=== PATIENT | male | born 1950 | race Caucasian/White ===

== ENCOUNTER 2016-09-22 15:32 | Observation (INO) | payer BC, OTHER ==
[~2016-09-22] VITALS: Ht 172.7 cm; Wt 74.1 kg
--- NOTE | 2016-09-22 16:53 | DIAGNOSTIC IMAGING REPORT ---
PROCEDURE: XR CHEST 1 VIEW INDICATION: CHEST PAIN TECHNIQUE: Portable AP view 04:14 p.m. COMPARISON: Chest 12/26/2009 FINDINGS: Lungs are clear. Mild cardiomegaly. Thorax is normal. IMPRESSION: 1. Mild cardiomegaly. Lungs clear.
--- NOTE | 2016-09-22 18:42 | ED CLINICAL REPORT ---
Clinical Report - Physicians/Mid Levels [facility] [address] [place] [address] 09/22/2016 15:33 Patient: ELA MEEKS Time Seen: 1609; initial patient contact, initial documentation, patient care assumed. Arrived- By private vehicle. Historian- patient and family. HISTORY OF PRESENT ILLNESS Chief Complaint: CHEST PAIN and DISCOMFORT. It is described as pressure and it is described as located in the central chest and left chest area. No radiation. This started yesterday and is still present. It was abrupt in onset and has been constant. Onset during light activity. At its maximum, severity described as moderate. When seen in the E.D., severity described as mild. Modifying factors. Not worsened by anything. Not relieved by anything. No nausea, vomiting, difficulty breathing or diaphoresis. (was burning wood yesterday, went to get another log, started having some chest discomfort and pressure, nd got lightheaded, passed out, no injury for passing out and since then still has the chest pressure and intermittent episodes of lightheaded, feels worse when lying supine, makes him more lightheaded). No additional chest pain. Similar symptoms previously: None. Recent medical care: Not recently seen/assessed. REVIEW OF SYSTEMS No fever or cough. He experienced syncope. All systems otherwise negative, except as recorded above. PAST HISTORY See nurses notes. PROBLEMS: Bronchitis. Back Pain. --15:42 Sherie Moreira RSheeba. ADDITIONAL SURGERIES: Back Surgery. Knee Surgery. Shoulder Surgery. --15:42 Sherie Moreira RSheeba. SOCIAL HISTORY Never smoker. No alcohol use or drug use. No recent travel. Is a local resident. FAMILY HISTORY Negative. ADDITIONAL NOTES The nursing notes have been reviewed with agreement regarding the chief complaint, HPI, ROS, PMH and patient medications and allergies. PHYSICAL EXAM Vital Signs: 09/22/2016 15:37 BP: 151/95. HR: 89. RR: 18. O2 saturation: 98%. Temp: 98.3 F. Pain level now: 3/10. Hypertensive. Heart rate normal. Respiratory rate normal. Temperature normal. Oxygen saturation normal. Appearance: Alert. Oriented X3. No acute distress. Eyes: Pupils equal, round and reactive to light. Eyes normal inspection. ENT: Ears normal. Nose normal. Pharynx normal. Neck: Normal inspection. Neck supple. CVS: Heart rate / rhythm abnormal. Abnormal rhythm, which is regularly irregular. Heart sounds normal. Respiratory: No respiratory distress. Breath sounds normal. Chest nontender. Back: Normal external inspection. Skin: Skin warm and dry. Normal skin color. No rash. Normal skin turgor. Extremities: Extremities exhibit normal ROM. No lower extremity edema. Neuro: Oriented X 3. No motor deficit. No sensory deficit. LABS, X-RAYS, AND EKG EKG: EKG time: (1540). No acute process. No acute ischemia. Abnormal EKG. Rate: 82. Atrial fibrillation (narrow-complex) (ventricular rate 82). Normal EKG. The study has been interpreted contemporaneously by me. The EKG appears to be a good tracing. EKG #2: EKG time: (1624). No acute process. No acute ischemia. Atrial fibrillation (narrow-complex) (ventricular rate 78). The study has been interpreted contemporaneously by me. The EKG appears to be a good tracing. Interpretation time: 1624. Chest X-ray: Normal Chest X-Ray. (IMPRESSION: 1. Mild cardiomegaly. Lungs clear. Electronically Final signed by:Stanley Gee MD 09/22/2016 4:53:45 PM). The X-rays were interpreted by the radiologist and contemporaneously by me. Interpretation time: 17:29. CT Head: No acute disease. The study was interpreted by the radiologist and discussed with the radiologist. Interpretation time: 19:46. Laboratory Tests: CBC w Diff: (FERNY: 09/22/2016 16:45) ( MsgRcvd 09/22/2016 17:12) Final results Test Result Flag Units (Reference) WHITE BLOOD COUNT 8.4 K/uL (4.5-11.5) RED BLOOD COUNT 5.19 M/uL (4.50-5.90) HEMOGLOBIN 15.5 gm/dL (13.5-17.5) HEMATOCRIT 46.1 % (41.0-53.0) MEAN CELL VOLUME 89 fL (80-100) MEAN CORPUSCULAR HGB 30 pg (26-34) MEAN CORPUSCULAR HGB CONC 34 g/dL (31-37) RED CELL DISTRIBUTION WIDTH 13.5 % (11.6-14.8) PLATELET COUNT 194 K/uL (150-400) NEUTROPHIL % 66.1 % (50-75) LYMPH % 24.8 L % (25-40) MONO % 5.9 % (3-14) EOSINOPHIL % 1.8 % (0-4) BASOPHIL % 1.4 % (0-2) [id number]: (FERNY: 09/22/2016 16:45) ( IlgRcvd 09/22/2016 17:19) Final results Test Result Flag Units (Reference) D-DIMER QUANTITATIVE < 0.27 L ug/mLFEU (0.27-0.52) The primary value of this quantitative assay relates toits negative predictive value (i.e. exclusion) of pulmonaryembolism/deep vein thrombosis/DIC.Elevated levels of d-dimer may also occur with:, age, cancer, inflammation, liver disease,post-op, infection, hematoma, coronary disease, peripheralarteriopathy, bleeding disorders and thrombolytic treatment.Results should be correlated with other clinical andradiological data.Testing Methodology: Latex Immunoassay CMP: (FERNY: 09/22/2016 16:45) ( IlgRcvd 09/22/2016 17:26) Final results Test Result Flag Units (Reference) GLUCOSE 105 mg/dL (70-110) BUN 17 mg/dL (7-18) CREATININE 0.9 mg/dL (0.6-1.3) Estimated GFR >60 mL/min Estimated GFR- >60 mL/min Note: Persistent reduction over 3 months in eGFR<60 mL/min/1.73 m2 defines CKD. Patients with eGFR values>=60 mL/min/1.73 m2 may also have CKD if evidence ofpersistent proteinuria. Additional information may be foundat [email or web address]. SODIUM 139 mmol/L (136-145) POTASSIUM 3.9 mmol/L (3.5-5.1) CHLORIDE 103 mmol/L (98-107) CARBON DIOXIDE 26 mmol/L (21-32) CALCIUM 9.1 mg/dL (8.5-10.1) TOTAL PROTEIN 7.7 g/dL (6.4-8.2) ALBUMIN 4.0 g/dL (3.3-5.0) BILIRUBIN, TOTAL 0.4 mg/dL (0.0-1.0) ALKALINE PHOSPHATASE 55 U/L (46-116) AST (SGOT) 18 U/L (15-37) ALT (SGPT) 15 U/L (12-78) CPK 107 U/L (24-260) TROPONIN I 0.06 ng/mL (0.00-1.5) TROPONIN REFERENCE RANGE:<0.1 NEGATIVE0.1-1.5 INDETERMINANT>1.5 POSITIVE . PROGRESS AND PROCEDURES Peripheral IV Placement: Performed by me. Indication: physician procedure. IV placed in the right forearm with an 18g angiocath with aseptic technique and good blood return; one attempt. Saline lock flushed with 5 mL saline. Course of Care: 1854. Nurse reporting pt could not do orthostatic vs, had positive tilt from laying to sitting and nearly passed out 1904. Speaking to Dr Barrientos again and updating her with pt status, and telling I am not comfortable dc'ing this pt home and that Dr Garcia agreed to see pt first thing in am if he was admitted, agreed to admit while on phone with Dr Barrientos, Dr Damon reports pt had another syncope episode while sitting in bed that last for a few min/sec Son reporting he helped his dad stand to urinate and his heart rate shot up to 128 and pt was dizzy and lightheaded and when he sat back down in bed is when syncope episode happened 1907. Spoke to Dr Garcia again, aware that pt was now staying and he agreed to see pt first thing in am 1914. Back at bedside, family wanting pt to go to [facility], where their drs are at, explained pt already had admit here, but I could check into and see if there was cardiology willing to accept him Prov full, no transfer 1920. back at bedside, pt in ct, son aware that prov was full, encouraged them to let pt stay here, expressed concerns that attempting to transfer somewhere else, would delay pt's care and put him at risk if he happened to throw an emboli in route, and that he was stable now, son agreed with current plan of care. 09/22/2016 17:46 BP: 144/98. HR: 74. RR: 18. O2 saturation: 99%. Vital Signs: have been reviewed as abnormal and appear to be correct. Hypertensive. Heart rate normal. Respiratory rate normal. Temperature normal. Oxygen saturation normal. Discussed case with on-call health care provider, (call returned [phone] Dr Barrientos, pt's case reviewed with her, nothing else would be done with pt was admitted over night, ok to [facility]). Reviewed test results. Agreed upon treatment plan and need for patient follow-up. Consult obtained from cardiology. call returned [phone] Dr Garcia - will see pt first thing Tuesday am. Case discussed. Phone consult only. Will see patient in the office in 5 days. Agree with treatment plan. Fire Investigation Manager's note not reviewed. Patient disposition not per investment consultant. Patient and family counseled in person regarding the patient's stable condition, test results, diagnosis and need for admission. 18:35. Differential Diagnosis: I considered muscle strain, costochondritis, pleurisy, rib fracture, myocardial infarction, intermediate coronary syndrome, unstable angina, angina, aortic dissection, mitral valve prolapse, pericarditis, pulmonary embolism, pneumonia, lung cancer, gastroesophageal reflux disease, esophagitis and esophageal spasm as a possible cause of chest pain in this patient. This is a partial list of diagnoses considered. Above considerations are based on history, physical exam, reassessment, laboratory data, X-Ray data and EKG. Differential diagnosis was discussed with patient. Disposition: Admitted to Acute Care. 19:11. Condition: good and stable. CLINICAL IMPRESSION Syncope of unknown cause. Atypical chest pain. New onset atrial fibrillation. INSTRUCTIONS Warnings: GENERAL WARNINGS: Return or contact your physician immediately if your condition worsens or changes unexpectedly, if not improving as expected, or if other problems arise. OTC Medications: Aspirin 325 mg (available over the counter): take 1 orally every 24 hours. Dispense twenty (20). No refills. Follow-up: Follow up with a specialist. (Electronically signed by Kera Jenkins A.R.N.P. 09/22/2016 22:16)
--- NOTE | 2016-09-22 18:42 | ED NURSING NOTES ---
Clinical Report - Nurses [facility] [address] [place] [address] 09/22/2016 15:33 Patient: ELA MEEKS TRIAGE Acuity: LEVEL 2. Chief Complaint: CHEST PAIN. Alert. No acute distress. SEPSIS SCREEN: Sepsis Screen. Negative (no infection suspected/documented). --15:45 Sherie Moreira R.N. 15:37 09/22/16. BP: 151/95. HR: 89. RR: 18. O2 saturation: 98% on room air. Temp: 98.3 F (oral). Pain level now: 08/20. --15:45 Sherie Moreira R.N. Weight: 77.5 kg stated. Height/Length: 70 inches Per Patient. BMI: 24.5. --15:44 Sherie Moreira R.N. Medications Percocet Oral. --15:40 Sherie Moreira R.N. TraZODone HCl Oral, at bedtime. --15:40 Sherie Moreira R.N. Vitamin D Oral. --15:41 Sherie Moreira R.N. Fish Oil Oral. --15:41 Sherie Moreira R.N. Medication/allergy information source: the patient. --15:45 Sherie Moreira R.N. Allergies No Known Drug Allergy. --15:41 Sherie Moreira R.N. History Arrived by private vehicle. Historian: patient. Unaccompanied. This started yesterday. Describes the quality as dull. Relates location as in the central chest area. ( Pt reports he was working in his yard yesterday and became dizzy and had a brief LOC. He states today he has a dull ache in his chest.). He has had dizziness. No difficulty breathing or sweating episodes. 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 PAST MEDICAL HX: Immunizations: up-to-date. SOCIAL HX: Smoker- current status unknown. No alcohol use or drug use. FALL RISK ASSESSMENT: Fall risk assessment completed. No fall risk identified. NUTRITIONAL RISK ASSESSMENT: The nutritional risk assessment revealed no deficiencies. FUNCTIONAL ASSESSMENT: Functional assessment: no impairments noted. LEARNING NEEDS ASSESSMENT: The learning needs assessment revealed no barriers. SKIN INTEGRITY ASSESSMENT: Skin integrity risk assessment completed. No skin integrity risk identified. --15:45 Sherie Moreira R.N. PROBLEMS: Bronchitis. Back Pain. --15:42 Sherie Moreira R.N. ADDITIONAL SURGERIES: Back Surgery. Knee Surgery. Shoulder Surgery. --15:42 Sherie Moreira R.N. Assessment GENERAL / NEURO / PSYCH: Alert. Oriented X 4. Appears in no acute distress. [place] Coma Scale: 15- eyes open spontaneously (4); best verbal response- oriented x 4 (5); best motor response- obeys commands (6). Patient appears calm and cooperative. RESPIRATORY: Respirations not labored. CVS: Cardiac rhythm: atrial fibrillation. Capillary refill less than 2 seconds. GI / : Abdomen soft and nontender. SKIN: Mucous membranes are pink. Skin is warm and dry. --15:45 Sherie Moreira R.N. Interventions ID band on patient. To treatment room. --15:45 Sherie Moreira R.N. PHYSICAL ASSESSMENT 15:45 09/22/16. To room via stretcher. GENERAL / NEURO / PSYCH: Alert. Oriented X 4. Appears in no acute distress. HEENT: Mucous membranes are pink. RESPIRATORY: Respirations not labored. CVS: Cardiac rhythm: atrial fibrillation. Pulses within normal limits. Capillary refill less than 2 seconds. GI / : Abdomen soft and nontender. SKIN: Skin is warm and dry. Normal skin turgor. --15:45 Sherie Moreira R.N. NURSING PROGRESS NOTES EKG time: (1540). EKG was performed by a tech and shown to the ED physician. --15:39 Sherie Moreira R.N. 15:46 09/22/16. monitoring analyst and pulse oximeter placed on patient; monitor alarms on. Patient gowned. Two patient identifiers checked. Call light placed in reach. Side rails up x 2. Bed placed in lowest position. Brakes of bed on. Patient ready for evaluation- chart flagged and ED physician notified. --15:46 Sherie Moreira R.N. 15:49 09/22/2016 Aspirin PO 325 mg given. Allergies verified and confirmed 5 rights. --15:49 Sherie Moreira R.N. EKG time: (3734). EKG was ordered, performed by a tech and shown to the ED physician. --16:27 Shazia Crista, ER Tech1 16:33 09/22/2016 Site #2 started via IV in the right forearm with an 18g angiocath; one attempt. Saline lock flushed with 10 mL saline (placed by Kera KNOX). --16:48 Emily Wagoner R.N. 16:42 09/22/2016 Site #1 started via IV in the right with an 20g angiocath; one attempt. Blood drawn: rainbow set. Labeled in the presence of the patient and sent to the lab. Saline lock flushed with 10 mL saline. --16:47 Emily Wagoner R.N. ( pt on monitor in afib 70's to low 80's, family at bedside, iv placed for primary RN,). --16:49 Emily Wagoner R.N. 17:35 09/22/16. BP: 144/100. HR: 78. RR: 18. O2 saturation: 99% on nasal cannula at 2 liters/minute. --17:35 Sherie Moreira R.N. 17:46 09/22/16. BP: 144/98. HR: 74. RR: 18. O2 saturation: 99% on nasal cannula at 2 liters/minute. --17:46 Sherie Moreira R.N. 17:47 09/22/16. The patient reports no complaints and he is calm and resting quietly. RESPIRATORY: No respiratory distress. CVS: Cardiac rhythm: atrial fibrillation. SKIN: Skin is warm and dry. Skin color within normal limits. Family at bedside. --17:47 Sherie Moreira R.N. 18:39 09/22/16. BP: 141/93. HR: 74. RR: 18. O2 saturation: 99% on nasal cannula at 2 liters/minute. --18:39 Sherie Moreira R.N. 19:11 09/22/16. BP: 152/98. HR: 75. RR: 20. O2 saturation: 99% on nasal cannula at 2 liters/minute. --19:13 Sherie Moreira R.N. late entry - 19:05. ( Orthostatic VS performed. Pt became very dizzy upon standing and could not stand long enough to obtain BP.). --19:14 Sherie Moreira R.N. 19:05 09/22/16. BP: 146/99 (regular adult cuff) taken on the left arm, while lying. HR: 73. RR: 20. O2 saturation: 97% on nasal cannula at 2 liters/minute. --19:16 Sherie Moreira R.N. 19:05 09/22/16. BP: 154/103. HR: 89. RR: 22. O2 saturation: 98% on nasal cannula. Additional comments: pt reports he dizziness upon sitting. --19:17 Sherie Moreira R.N. 19:22 09/22/16. Patient transported to [facility] by stretcher with [facility] [facility]. --19:22 Sherie Moreira R.N. 19:48 09/22/16. ( Attempted to call report. RN busy..). --19:48 Sherie Moreira R.N. 19:57 09/22/16. BP: 151/99. HR: 80. RR: 18. O2 saturation: 99% on nasal cannula at 2 liters/minute. --19:58 Sherie Moreira R.N. DISPOSITION / DISCHARGE 20:16 09/22/2016 Site #[address] upon admission; patent, no pain and no signs of infection or infiltration. Flushed with 10 mL saline; flushes easily. --20:16 Sherie Moreira R.N. 20:17 09/22/2016 Site #[address] upon admission; patent, no pain and no signs of infection or infiltration. Flushed with 10 mL saline; flushes easily. --20:17 Sherie Moreira R.N. Condition at departure: improved and stable. Admitted to Acute Care (211). Transported via stretcher by tech. Report was given to a nurse via a phone call. Report included patient's care, treatment, medications, reviewed medication reconcilliation, and condition (including any recent changes or anticipated changes). All questions were answered. Report was acknowledged and care was transferred. (JOSE Jones). --20:17 Sherie Moreira R.N. 20:12 09/22/16. BP: 149/89. HR: 75. RR: 18. O2 saturation: 99% on nasal cannula at 2 liters/minute. Temp: 98 F (oral). --20:17 Sherie Moreira R.N. Patient's personal items include: shirt, pants, coat, socks, shoes, hat, glasses, upper denture and lower denture and cell phone; items were placed in belongings bag, given to the patient and transported with the patient. He did not have a hearing aid or wallet. --20:24 Sherie Moreira R.N. Departure time: 20:Sep 22 2016. --20:26 Sherie Moreira R.N. Locked/Released at 09/22/2016 20:36 by Sherie Moreira R.N.
--- NOTE | 2016-09-22 18:42 | ED NURSING NOTES ---
Clinical Report - Nurses [facility] [address] [place] [place] [address] 09/22/2016 15:33 Patient: ELA MEEKS TRIAGE Acuity: LEVEL 2. Chief Complaint: CHEST PAIN. Alert. No acute distress. SEPSIS SCREEN: Sepsis Screen. Negative (no infection suspected/documented). --15:45 Sherie Moreira R.N. 15:37 09/22/16. BP: 151/95. HR: 89. RR: 18. O2 saturation: 98% on room air. Temp: 98.3 F (oral). Pain level now: 08/20. --15:45 Sherie Moreira R.N. Weight: 77.5 kg stated. Height/Length: 70 inches Per Patient. BMI: 24.5. --15:44 Sherie Moreira R.N. Medications Percocet Oral. --15:40 Sherie Moreira R.N. TraZODone HCl Oral, at bedtime. --15:40 Sherie Moreira R.N. Vitamin D Oral. --15:41 Sherie Moreira R.N. Fish Oil Oral. --15:41 Sherie Moreira R.N. Medication/allergy information source: the patient. --15:45 Sherie Moreira R.N. Allergies No Known Drug Allergy. --15:41 Sherie Moreira R.N. History Arrived by private vehicle. Historian: patient. Unaccompanied. This started yesterday. Describes the quality as dull. Relates location as in the central chest area. ( Pt reports he was working in his yard yesterday and became dizzy and had a brief LOC. He states today he has a dull ache in his chest.). He has had dizziness. No difficulty breathing or sweating episodes. 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 PAST MEDICAL HX: Immunizations: up-to-date. SOCIAL HX: Smoker- current status unknown. No alcohol use or drug use. FALL RISK ASSESSMENT: Fall risk assessment completed. No fall risk identified. NUTRITIONAL RISK ASSESSMENT: The nutritional risk assessment revealed no deficiencies. FUNCTIONAL ASSESSMENT: Functional assessment: no impairments noted. LEARNING NEEDS ASSESSMENT: The learning needs assessment revealed no barriers. SKIN INTEGRITY ASSESSMENT: Skin integrity risk assessment completed. No skin integrity risk identified. --15:45 Sherie Moreira R.N. PROBLEMS: Bronchitis. Back Pain. --15:42 Sherie Moreira R.N. ADDITIONAL SURGERIES: Back Surgery. Knee Surgery. Shoulder Surgery. --15:42 Sherie Moreira R.N. Assessment GENERAL / NEURO / PSYCH: Alert. Oriented X 4. Appears in no acute distress. Ellis Coma Scale: 15- eyes open spontaneously (4); best verbal response- oriented x 4 (5); best motor response- obeys commands (6). Patient appears calm and cooperative. RESPIRATORY: Respirations not labored. CVS: Cardiac rhythm: atrial fibrillation. Capillary refill less than 2 seconds. GI / : Abdomen soft and nontender. SKIN: Mucous membranes are pink. Skin is warm and dry. --15:45 Sherie Moreira R.N. Interventions ID band on patient. To treatment room. --15:45 Sherie Moreira R.N. PHYSICAL ASSESSMENT 15:45 09/22/16. To room via stretcher. GENERAL / NEURO / PSYCH: Alert. Oriented X 4. Appears in no acute distress. HEENT: Mucous membranes are pink. RESPIRATORY: Respirations not labored. CVS: Cardiac rhythm: atrial fibrillation. Pulses within normal limits. Capillary refill less than 2 seconds. GI / : Abdomen soft and nontender. SKIN: Skin is warm and dry. Normal skin turgor. --15:45 Sherie Moreira R.N. NURSING PROGRESS NOTES EKG time: (1540). EKG was performed by a tech and shown to the ED physician. --15:39 Sherie Moreira R.N. 15:46 09/22/16. monitor and storage bin tender and pulse oximeter placed on patient; monitor alarms on. Patient gowned. Two patient identifiers checked. Call light placed in reach. Side rails up x 2. Bed placed in lowest position. Brakes of bed on. Patient ready for evaluation- chart flagged and ED physician notified. --15:46 Sherie Moreira R.N. 15:49 09/22/2016 Aspirin PO 325 mg given. Allergies verified and confirmed 5 rights. --15:49 Sherie Moreira R.N. EKG time: (7194). EKG was ordered, performed by a tech and shown to the ED physician. --16:27 Shazia Crista, ER Tech1 16:33 09/22/2016 Site #2 started via IV in the right forearm with an 18g angiocath; one attempt. Saline lock flushed with 10 mL saline (placed by Kera KNOX). --16:48 Emily Wagoner R.N. 16:42 09/22/2016 Site #1 started via IV in the right with an 20g angiocath; one attempt. Blood drawn: rainbow set. Labeled in the presence of the patient and sent to the lab. Saline lock flushed with 10 mL saline. --16:47 Emily Wagoner R.N. ( pt on monitor in afib 70's to low 80's, family at bedside, iv placed for primary RN,). --16:49 Emily Wagoner R.N. 17:35 09/22/16. BP: 144/100. HR: 78. RR: 18. O2 saturation: 99% on nasal cannula at 2 liters/minute. --17:35 Sherie Moreira R.N. 17:46 09/22/16. BP: 144/98. HR: 74. RR: 18. O2 saturation: 99% on nasal cannula at 2 liters/minute. --17:46 Sherie Moreira R.N. 17:47 09/22/16. The patient reports no complaints and he is calm and resting quietly. RESPIRATORY: No respiratory distress. CVS: Cardiac rhythm: atrial fibrillation. SKIN: Skin is warm and dry. Skin color within normal limits. Family at bedside. --17:47 Sherie Moreira R.N. 18:39 09/22/16. BP: 141/93. HR: 74. RR: 18. O2 saturation: 99% on nasal cannula at 2 liters/minute. --18:39 Sherie Moreira R.N. 19:11 09/22/16. BP: 152/98. HR: 75. RR: 20. O2 saturation: 99% on nasal cannula at 2 liters/minute. --19:13 Sherie Moreira R.N. late entry - 19:05. ( Orthostatic VS performed. Pt became very dizzy upon standing and could not stand long enough to obtain BP.). --19:14 Sherie Moreira R.N. 19:05 09/22/16. BP: 146/99 (regular adult cuff) taken on the left arm, while lying. HR: 73. RR: 20. O2 saturation: 97% on nasal cannula at 2 liters/minute. --19:16 Sherie Moreira R.N. 19:05 09/22/16. BP: 154/103. HR: 89. RR: 22. O2 saturation: 98% on nasal cannula. Additional comments: pt reports he dizziness upon sitting. --19:17 Sherie Moreira R.N. 19:22 09/22/16. Patient transported to OR by stretcher with [employer]. --19:22 Sherie Moreira R.N. 19:48 09/22/16. ( Attempted to call report. RN busy..). --19:48 Sherie Moreira R.N. 19:57 09/22/16. BP: 151/99. HR: 80. RR: 18. O2 saturation: 99% on nasal cannula at 2 liters/minute. --19:58 Sherie Moreira R.N. DISPOSITION / DISCHARGE 20:16 09/22/2016 Site #[address] upon admission; patent, no pain and no signs of infection or infiltration. Flushed with 10 mL saline; flushes easily. --20:16 Sherie Moreira R.N. 20:17 09/22/2016 Site #[address] upon admission; patent, no pain and no signs of infection or infiltration. Flushed with 10 mL saline; flushes easily. --20:17 Sherie Moreira R.N. Condition at departure: improved and stable. Admitted to Acute Care (211). Transported via stretcher by tech. Report was given to a nurse via a phone call. Report included patient's care, treatment, medications, reviewed medication reconcilliation, and condition (including any recent changes or anticipated changes). All questions were answered. Report was acknowledged and care was transferred. (JOSE Jones). --20:17 Sherie Moreira R.N. 20:12 09/22/16. BP: 149/89. HR: 75. RR: 18. O2 saturation: 99% on nasal cannula at 2 liters/minute. Temp: 98 F (oral). --20:17 Sherie Moreira R.N. Patient's personal items include: shirt, pants, coat, socks, shoes, hat, glasses, upper denture and lower denture and cell phone; items were placed in belongings bag, given to the patient and transported with the patient. He did not have a hearing aid or wallet. --20:24 Sherie Moreira R.N. Departure time: 20:Sep 22 2016. --20:26 Sherie Moreira R.N. Locked/Released at 09/22/2016 20:36 by Sherie Moreira R.N.
--- NOTE | 2016-09-22 18:43 | ED ORDER SUMMARY ---
..... Patient: ELA MEEKS OrderSheet [facility] VisitID: [id number] [place] [address] 66y, M Registration Date/Time: 09/22/2016 ORDER SHEET Weight: 77.5 kg (stated) Allergies: No Known Drug Allergy GENERAL ORDERS: Ware Server (Continuous) (16:19 09/22/2016 HBivens A.R.N.P.) (16:32 LNations ER Tech1) Chest 1V Urgent (16:19 09/22/2016 HBivens A.R.N.P.) (Ack 16:20 KHoerner) (16:44 JSanders R.N.) CBC w Diff Urgent (16:19 09/22/2016 HBivens A.R.N.P.) (Ack 16:20 KHoerner) (16:44 JSanders R.N.) CMP Urgent (16:19 09/22/2016 HBivens A.R.N.P.) (Ack 16:20 KHoerner) (16:44 JSanders R.N.) D-Dimer Urgent (16:19 09/22/2016 HBivens A.R.N.P.) (Ack 16:20 KHoerner) (16:44 JSanders R.N.) CPK Urgent (16:19 09/22/2016 HBivens A.R.N.P.) (Ack 16:20 KHoerner) (16:44 JSanders R.N.) Troponin-I Urgent (16:19 09/22/2016 HBivens A.R.N.P.) (Ack 16:20 KHoerner) (16:44 JSanders R.N.) Oxygen (2 L/min) (NC) (16:19 09/22/2016 HBivens A.R.N.P.) (16:32 LNations ER Tech1) EKG - ER Stat (16:19 09/22/2016 HBivens A.R.N.P.) (Ack 16:20 KHoerner) (16:32 LNations ER Tech1) EKG - ER Repeat Stat (16:32 09/22/2016 LNations ER Tech1 verbal order read back to HBivens A.R.N.P.) (16:32 LNations ER Tech1) Vitals - Orthostatic (18:18 09/22/2016 HBivens A.R.N.P.) (Ack 18:35 MWinterer R.N.) (19:11 JBoardley R.N.) CT Head wo Cont Urgent (19:18 09/22/2016 HBivens A.R.N.P.) (Ack 19:29 SRedmond) (19:44 MWinterer R.N.) CPK Urgent (19:29 09/22/2016 HBivens A.R.N.P.) (Ack 19:30 SRedmond) (19:46 MWinterer R.N.) Troponin-I Urgent (19:29 09/22/2016 HBivens A.R.N.P.) (Ack 19:30 SRedmond) (19:46 MWinterer R.N.) TSH Urgent (19:31 09/22/2016 HBivens A.R.N.P.) (Ack 19:41 SRedmond) (19:46 MWinterer R.N.) MEDICATION ORDERS: Aspirin PO 325 mg (NOW) (15:49 09/22/2016 MWinterer R.N. per protocol) (15:49 MWinterer R.N.) IV FLUIDS: IV Saline Lock (16:19 09/22/2016 HBivens A.R.N.P.) (16:54 SandraKuayden R.N.) Cardizem IV 25 mg (HIGH ALERT MEDICATION, NOW) (16:26 09/22/2016 HBivens A.R.N.P.) (Cancelled: Other16:27 HBivens A.R.N.P.) Cardizem IV 25 mg (NOW, TITRATE) (16:27 09/22/2016 HBivens A.R.N.P.) (Cancelled: Other16:41 HBivens A.R.N.P.) ORDER SHEET NOTES: [Electronically signed by Sherie Moreira R.N. (20:36 09/22/2016)] [Electronically signed by Kera Jenkins (22:16 09/22/2016)] [Electronically locked/signed by Sherie Moreira R.N. (20:36 09/22/2016)]
--- NOTE | 2016-09-22 18:43 | ED ORDER SUMMARY ---
..... Patient: ELA MEEKS OrderSheet [facility] VisitID: [id number] [place] [address] 66y, M Registration Date/Time: 09/22/2016 ORDER SHEET Weight: 77.5 kg (stated) Allergies: No Known Drug Allergy GENERAL ORDERS: Enterprise Mobility Architect (Continuous) (16:19 09/22/2016 HBivens A.R.N.P.) (16:32 LNations ER Tech1) Chest 1V Urgent (16:19 09/22/2016 HBivens A.R.N.P.) (Ack 16:20 KHoerner) (16:44 JSanders R.N.) CBC w Diff Urgent (16:19 09/22/2016 HBivens A.R.N.P.) (Ack 16:20 KHoerner) (16:44 JSanders R.N.) CMP Urgent (16:19 09/22/2016 HBivens A.R.N.P.) (Ack 16:20 KHoerner) (16:44 JSanders R.N.) D-Dimer Urgent (16:19 09/22/2016 HBivens A.R.N.P.) (Ack 16:20 KHoerner) (16:44 JSanders R.N.) CPK Urgent (16:19 09/22/2016 HBivens A.R.N.P.) (Ack 16:20 KHoerner) (16:44 JSanders R.N.) Troponin-I Urgent (16:19 09/22/2016 HBivens A.R.N.P.) (Ack 16:20 KHoerner) (16:44 JSanders R.N.) Oxygen (2 L/min) (NC) (16:19 09/22/2016 HBivens A.R.N.P.) (16:32 LNations ER Tech1) EKG - ER Stat (16:19 09/22/2016 HBivens A.R.N.P.) (Ack 16:20 KHoerner) (16:32 LNations ER Tech1) EKG - ER Repeat Stat (16:32 09/22/2016 LNations ER Tech1 verbal order read back to HBivens A.R.N.P.) (16:32 LNations ER Tech1) Vitals - Orthostatic (18:18 09/22/2016 HBivens A.R.N.P.) (Ack 18:35 MWinterer R.N.) (19:11 JBoardley R.N.) CT Head wo Cont Urgent (19:18 09/22/2016 HBivens A.R.N.P.) (Ack 19:29 SRedmond) (19:44 MWinterer R.N.) CPK Urgent (19:29 09/22/2016 HBivens A.R.N.P.) (Ack 19:30 SRedmond) (19:46 MWinterer R.N.) Troponin-I Urgent (19:29 09/22/2016 HBivens A.R.N.P.) (Ack 19:30 SRedmond) (19:46 MWinterer R.N.) TSH Urgent (19:31 09/22/2016 HBivens A.R.N.P.) (Ack 19:41 SRedmond) (19:46 MWinterer R.N.) MEDICATION ORDERS: Aspirin PO 325 mg (NOW) (15:49 09/22/2016 MWinterer R.N. per protocol) (15:49 MWinterer R.N.) IV FLUIDS: IV Saline Lock (16:19 09/22/2016 HBivens A.R.N.P.) (16:54 SandraKuayden R.N.) Cardizem IV 25 mg (HIGH ALERT MEDICATION, NOW) (16:26 09/22/2016 HBivens A.R.N.P.) (Cancelled: Other16:27 HBivens A.R.N.P.) Cardizem IV 25 mg (NOW, TITRATE) (16:27 09/22/2016 HBivens A.R.N.P.) (Cancelled: Other16:41 HBivens A.R.N.P.) ORDER SHEET NOTES: [Electronically signed by Sherie Moreira R.N. (20:36 09/22/2016)] [Electronically signed by Kera Jenkins (22:16 09/22/2016)] [Electronically locked/signed by Sherie Moreira R.N. (20:36 09/22/2016)]
--- NOTE | 2016-09-22 19:46 | DIAGNOSTIC IMAGING REPORT ---
PROCEDURE: CT HEAD WITHOUT CONTRAST INDICATION: SYNCOPE TECHNIQUE: Noncontrast axial images with sagittal and coronal reformations. COMPARISON: None. FINDINGS: Sulci and ventricular system are normal. Minor white matter chronic ischemic changes. No evidence of acute intracranial process. Mild pansinusitis. Mastoids are clear. IMPRESSION: 1. No acute intracranial abnormality 2. Minor white matter chronic ischemic changes 3. Sinus disease 4. Findings discussed with Kera Jenkins at 07:44 p.m.[facility] Time
--- NOTE | 2016-09-22 19:46 | DIAGNOSTIC IMAGING REPORT ---
PROCEDURE: CT HEAD WITHOUT CONTRAST INDICATION: SYNCOPE TECHNIQUE: Noncontrast axial images with sagittal and coronal reformations. COMPARISON: None. FINDINGS: Sulci and ventricular system are normal. Minor white matter chronic ischemic changes. No evidence of acute intracranial process. Mild pansinusitis. Mastoids are clear. IMPRESSION: 1. No acute intracranial abnormality 2. Minor white matter chronic ischemic changes 3. Sinus disease 4. Findings discussed with Kera Jenkins at 07:44 p.m.[facility] Time
[2016-09-22 20:40] VITALS: BP 154/91
[2016-09-22] MEDS ORDERED: PERCOCET1 TA1 PO (20:40)
[2016-09-22] MEDS ORDERED: TRAZODONE HCL50 MG PO (20:42)
[2016-09-22] MEDS ORDERED: MORPHINE SULFATE5 MG (20:44)
--- NOTE | 2016-09-22 22:00 | NUR ---
DURING THE ASSESSMENT, PT HAD A "BLANK EPISODE" WHERE HE STARED STRAIGHT AHEAD AND DID NOT RESPOND WHEN HIS NAME WAS CALLED REPEATEDLY. EPISODE LASTED 5-10 SECONDS AND PT SNAPPED OUT OF IT ON HIS OWN. DR. MCMANUS AWARE. LATER WHEN IN ROOM AGAIN TO GIVE MEDICATIONS, PT HAD SEVERAL OF THESE EPISODES. HE DENIES BEING TIRED BUT FEELS DISORIENTED WHEN HE "COMES TO".
--- NOTE | 2016-09-22 22:16 | ED MAR SUMMARY ---
..... Medication Administration Record [address] [place] [address] Patient: ELA MEEKS Visit ID: [id number] 66y, M Weight: 77.5 kg Height/Length: 70 in BMI: 24.5 ALLERGIES: No Known Drug Allergy Given 15:49 09/22/2016 Sherie Moreira R.N. Medication Administered: ASPIRIN [PO], Dose: 325 mg PO. Medication Ordered: Aspirin PO 325 mg (NOW).
--- NOTE | 2016-09-22 22:16 | ED MED RECONCILIATION SUMMARY ---
Patient: ELA MEEKS Medication Reconciliation Report [facility] VisitID: [id number] [address] [place] [address] 66y, M Registration Date/Time: 09/22/2016 Weight: 77.5 kg Height/Length: 70 in. BMI: 24.5 ALLERGIES: No Known Drug Allergy The patient's Home Medications are listed below: THE FOLLOWING MEDICATIONS NEED TO BE RECONCILED: Fish Oil Oral Percocet Oral TraZODone HCl Oral, at bedtime Vitamin D Oral The source(s) of the original Home Medication information: patient The following Medications were given to the patient in the Emergency Department: Aspirin [PO] PO 325 mg, administered: 09/22/2016 3:49:00 PM The following Medications were prescribed to the patient: Aspirin 325 mg (available over the counter): take 1 orally every 24 hours. Dispense twenty (20). No refills. -- Kera Jenkins A.R.N.P.
--- NOTE | 2016-09-22 22:16 | ED MAR SUMMARY ---
..... Medication Administration Record [address] [place] [address] Patient: ELA MEEKS Visit ID: [id number] 66y, M Weight: 77.5 kg Height/Length: 70 in BMI: 24.5 ALLERGIES: No Known Drug Allergy Given 15:49 09/22/2016 Sherie Moreira R.N. Medication Administered: ASPIRIN [PO], Dose: 325 mg PO. Medication Ordered: Aspirin PO 325 mg (NOW).
--- NOTE | 2016-09-22 22:16 | ED MED RECONCILIATION SUMMARY ---
Patient: ELA MEEKS Medication Reconciliation Report [facility] VisitID: [id number] [address] [place] [address] 66y, M Registration Date/Time: 09/22/2016 Weight: 77.5 kg Height/Length: 70 in. BMI: 24.5 ALLERGIES: No Known Drug Allergy The patient's Home Medications are listed below: THE FOLLOWING MEDICATIONS NEED TO BE RECONCILED: Fish Oil Oral Percocet Oral TraZODone HCl Oral, at bedtime Vitamin D Oral The source(s) of the original Home Medication information: patient The following Medications were given to the patient in the Emergency Department: Aspirin [PO] PO 325 mg, administered: 09/22/2016 3:49:00 PM The following Medications were prescribed to the patient: Aspirin 325 mg (available over the counter): take 1 orally every 24 hours. Dispense twenty (20). No refills. -- Kera Jenkins A.R.N.P.
--- NOTE | 2016-09-22 22:16 | ED DISCHARGE INSTRUCTIONS ---
Patient: ELA MEEKS General Instructions [facility] VisitID: [id number] [place] [address] 66y, M Registration Date/Time: 09/22/2016 Syncope of unknown cause. Atypical chest pain. New onset atrial fibrillation. INSTRUCTIONS Warnings: GENERAL WARNINGS: Return or contact your physician immediately if your condition worsens or changes unexpectedly, if not improving as expected, or if other problems arise. OTC Medications: Aspirin 325 mg (available over the counter): take 1 orally every 24 hours. Dispense twenty (20). No refills. Follow-up: Follow up with a specialist. ADDITIONAL INFORMATION Aspirin Oral tablet What is this medicine? ASPIRIN ( pir in) is a pain reliever. It is used to treat mild pain and fever. This medicine is also used as directed by a doctor to prevent and to treat heart attacks, to prevent strokes, and to treat arthritis or inflammation. How should I use this medicine? Take this medicine by mouth with a glass of water. Follow the directions on the package or prescription label. You can take this medicine with or without food. If it upsets your stomach, take it with food. Do not take your medicine more often than directed. Talk to your television operator regarding the use of this medicine in children. While this drug may be prescribed for children as young as 12 years of age for selected conditions, precautions do apply. Children and teenagers should not use this medicine to treat chicken pox or flu symptoms unless directed by a doctor. Patients over 65 years old may have a stronger reaction and need a smaller dose. What side effects may I notice from receiving this medicine? Side effects that you should report to your doctor or health home care rn as soon as possible: allergic reactions like skin rash, itching or hives, swelling of the face, lips, or tongue breathing problems changes in hearing, ringing in the ears confusion general ill feeling or flu-like symptoms pain on swallowing redness, blistering, peeling or loosening of the skin, including inside the mouth or nose signs and symptoms of bleeding such as bloody or black, tarry stools; red or dark-brown urine; spitting up blood or brown material that looks like coffee grounds; red spots on the skin; unusual bruising or bleeding from the eye, gums, or nose trouble passing urine or change in the amount of urine unusually weak or tired yellowing of the eyes or skin Side effects that usually do not require medical attention (report to your doctor or health home care rn if they continue or are bothersome): diarrhea or constipation nausea, vomiting stomach gas, heartburn What may interact with this medicine? Do not take this medicine with any of the following medications: cidofovir ketorolac probenecid This medicine may also interact with the following medications: alcohol alendronate bismuth subsalicylate flavocoxid herbal supplements like feverfew, garlic, tomas, ginkgo biloba, horse chestnut medicines for diabetes or glaucoma like acetazolamide, methazolamide medicines for gout medicines that treat or prevent blood clots like enoxaparin, heparin, ticlopidine, warfarin other aspirin and aspirin-like medicines NSAIDs, medicines for pain and inflammation, like ibuprofen or naproxen pemetrexed sulfinpyrazone varicella live vaccine What if I miss a dose? If you are taking this medicine on a regular schedule and miss a dose, take it as soon as you can. If it is almost time for your next dose, take only that dose. Do not take double or extra doses. Where should I keep my medicine? Keep out of the reach of children. Store at room temperature between 15 and 30 degrees C (59 and 86 degrees F). Protect from heat and moisture. Do not use this medicine if it has a strong vinegar smell. Throw away any unused medicine after the expiration date. What should I tell my health care provider before I take this medicine? They need to know if you have any of these conditions: anemia asthma bleeding problems child with chickenpox, the flu, or other viral infection diabetes gout if you frequently drink alcohol containing drinks kidney disease liver disease low level of vitamin K lupus smoke tobacco stomach ulcers or other problems an unusual or allergic reaction to aspirin, tartrazine dye, other medicines, dyes, or preservatives or trying to get breast-feeding What should I watch for while using this medicine? If you are treating yourself for pain, tell your doctor or health home care rn if the pain lasts more than 10 days, if it gets worse, or if there is a new or different kind of pain. Tell your doctor if you see redness or swelling. Also, check with your doctor if you have a fever that lasts for more than 3 days. Only take this medicine to prevent heart attacks or blood clotting if prescribed by your doctor or health home care rn. Do not take aspirin or aspirin-like medicines with this medicine. Too much aspirin can be dangerous. Always read the labels carefully. This medicine can irritate your stomach or cause bleeding problems. Do not smoke cigarettes or drink alcohol while taking this medicine. Do not lie down for 30 minutes after taking this medicine to prevent irritation to your throat. If you are scheduled for any medical or dental procedure, tell your healthcare provider that you are taking this medicine. You may need to stop taking this medicine before the procedure. You have been given the following additional information: Aspirin Oral tablet (Electronically signed by Kera Jenkins A.R.NBentleyP. 09/22/2016 22:16)
--- NOTE | 2016-09-22 22:16 | ED DISCHARGE INSTRUCTIONS ---
Patient: ELA MEEKS General Instructions [facility] VisitID: [id number] [place] [address] 66y, M Registration Date/Time: 09/22/2016 Syncope of unknown cause. Atypical chest pain. New onset atrial fibrillation. INSTRUCTIONS Warnings: GENERAL WARNINGS: Return or contact your physician immediately if your condition worsens or changes unexpectedly, if not improving as expected, or if other problems arise. OTC Medications: Aspirin 325 mg (available over the counter): take 1 orally every 24 hours. Dispense twenty (20). No refills. Follow-up: Follow up with a specialist. ADDITIONAL INFORMATION Aspirin Oral tablet What is this medicine? ASPIRIN ( pir in) is a pain reliever. It is used to treat mild pain and fever. This medicine is also used as directed by a doctor to prevent and to treat heart attacks, to prevent strokes, and to treat arthritis or inflammation. How should I use this medicine? Take this medicine by mouth with a glass of water. Follow the directions on the package or prescription label. You can take this medicine with or without food. If it upsets your stomach, take it with food. Do not take your medicine more often than directed. Talk to your assembler motor vehicle regarding the use of this medicine in children. While this drug may be prescribed for children as young as 12 years of age for selected conditions, precautions do apply. Children and teenagers should not use this medicine to treat chicken pox or flu symptoms unless directed by a doctor. Patients over 65 years old may have a stronger reaction and need a smaller dose. What side effects may I notice from receiving this medicine? Side effects that you should report to your doctor or health patient care manager as soon as possible: allergic reactions like skin rash, itching or hives, swelling of the face, lips, or tongue breathing problems changes in hearing, ringing in the ears confusion general ill feeling or flu-like symptoms pain on swallowing redness, blistering, peeling or loosening of the skin, including inside the mouth or nose signs and symptoms of bleeding such as bloody or black, tarry stools; red or dark-brown urine; spitting up blood or brown material that looks like coffee grounds; red spots on the skin; unusual bruising or bleeding from the eye, gums, or nose trouble passing urine or change in the amount of urine unusually weak or tired yellowing of the eyes or skin Side effects that usually do not require medical attention (report to your doctor or health patient care manager if they continue or are bothersome): diarrhea or constipation nausea, vomiting stomach gas, heartburn What may interact with this medicine? Do not take this medicine with any of the following medications: cidofovir ketorolac probenecid This medicine may also interact with the following medications: alcohol alendronate bismuth subsalicylate flavocoxid herbal supplements like feverfew, garlic, tomas, ginkgo biloba, horse chestnut medicines for diabetes or glaucoma like acetazolamide, methazolamide medicines for gout medicines that treat or prevent blood clots like enoxaparin, heparin, ticlopidine, warfarin other aspirin and aspirin-like medicines NSAIDs, medicines for pain and inflammation, like ibuprofen or naproxen pemetrexed sulfinpyrazone varicella live vaccine What if I miss a dose? If you are taking this medicine on a regular schedule and miss a dose, take it as soon as you can. If it is almost time for your next dose, take only that dose. Do not take double or extra doses. Where should I keep my medicine? Keep out of the reach of children. Store at room temperature between 15 and 30 degrees C (59 and 86 degrees F). Protect from heat and moisture. Do not use this medicine if it has a strong vinegar smell. Throw away any unused medicine after the expiration date. What should I tell my health care provider before I take this medicine? They need to know if you have any of these conditions: anemia asthma bleeding problems child with chickenpox, the flu, or other viral infection diabetes gout if you frequently drink alcohol containing drinks kidney disease liver disease low level of vitamin K lupus smoke tobacco stomach ulcers or other problems an unusual or allergic reaction to aspirin, tartrazine dye, other medicines, dyes, or preservatives or trying to get breast-feeding What should I watch for while using this medicine? If you are treating yourself for pain, tell your doctor or health patient care manager if the pain lasts more than 10 days, if it gets worse, or if there is a new or different kind of pain. Tell your doctor if you see redness or swelling. Also, check with your doctor if you have a fever that lasts for more than 3 days. Only take this medicine to prevent heart attacks or blood clotting if prescribed by your doctor or health patient care manager. Do not take aspirin or aspirin-like medicines with this medicine. Too much aspirin can be dangerous. Always read the labels carefully. This medicine can irritate your stomach or cause bleeding problems. Do not smoke cigarettes or drink alcohol while taking this medicine. Do not lie down for 30 minutes after taking this medicine to prevent irritation to your throat. If you are scheduled for any medical or dental procedure, tell your healthcare provider that you are taking this medicine. You may need to stop taking this medicine before the procedure. You have been given the following additional information: Aspirin Oral tablet (Electronically signed by Kera Jenknis [email or web address]. 09/22/2016 22:16)
[2016-09-22 22:33] VITALS: BP 142/76
[2016-09-22] MEDS ORDERED: MORPHINE SULFAT15 M2 PO (22:49)
[2016-09-22] MEDS ORDERED: TRAZODONE HCL100 MG PO (22:49)
[2016-09-22] MEDS ORDERED: TIZANIDINE HCL4 MG PO (22:51)
[2016-09-22] MEDS ORDERED: FISH OIL1200 MG PO (22:52)
[2016-09-22] MEDS ORDERED: VITAMIN D-31000 UNIT PO (22:53)
--- NOTE | 2016-09-23 01:35 | HISTORY AND PHYSICAL ---
ADMITTED: 09/22/2016 CHIEF COMPLAINT: 1. Dizziness HISTORY OF PRESENT ILLNESS: This is a 66-year-old male with chronic pain, presenting to the hospital initially with complaints of sudden onset of dizziness the day before admission. The patient states that approximately 24 hours prior to admission, he was working hard and not drinking a lot of water, he bent over and passed out. The patient states that he went in the house, drank some water and felt slightly improved after sitting and resting for a period of time. Since he was feeling better he waited until today; however, when his symptoms were not improving he decided to come in to the emergency department. He denies any shortness of breath with these episodes. He denies any racing heart or palpitations. He does admit to chest pain since the episodes started. The patient also complains of ongoing dizziness that is waxing and waning. He denies any headaches, fevers, chills, blurry vision, cough, cold symptoms, problems swallowing. No shortness of breath or cough. No nausea, vomiting, abdominal pain, diarrhea, constipation. No slurred speech or weakness. MEDICAL/SURGICAL HISTORY: Past medical history: Tailbone injury requiring injections every 3 months and chronic pain medications, insomnia, depression. Past surgical history: The patient has had lumbar back surgery in 2008, tonsillectomy and adenoidectomy , left shoulder arthroscopy and left knee arthroscopy. He has also had a normal colonoscopy. MEDICATIONS: 1. Percocet 5/325 mg 1 tablet up to 7 times a day. 2. Morphine sulfate ER 15 mg p.o. at bedtime. 3. Trazodone 100 mg p.o. at bedtime. 4. Vitamin D 1000 international units p.o. daily. 5. Fish oil 1000 mg p.o. daily. 6. Duloxetine 60 mg p.o. daily. 7. Tizanidine 4 mg p.o. daily. ALLERGIES: 1. NO KNOWN DRUG ALLERGIES. SOCIAL HISTORY: The patient lives with his . He has a pet dog. He is retired from [employer] He initially states that he quit smoking then admits that he does intermittently sneak a cigarette. He has a pack-year history of approximately 28 years. FAMILY HISTORY: Mother with breast cancer at age 50, dementia, hypertension, dyslipidemia, COPD and CAD. Father with hypertension, dyslipidemia, colon cancer. Sister x2 blood clots, CAD and another sister with hepatitis C and kidney failure. REVIEW OF SYSTEMS: A full 12-point review of systems was negative except as per HPI. PHYSICAL EXAMINATION: VITAL SIGNS: Blood pressure is 154/91, pulse is 78, respiratory rate of 18, O2 saturation 96% on room air, T-max is 36.6 degrees Celsius. GENERAL: This is a well-appearing male sitting in bed in no apparent distress. HEENT: Head is atraumatic, normocephalic. Pupils are equal, round, and reactive to light with accommodation bilaterally. Extraocular muscles are intact bilaterally. Tympanic membranes are nonerythematous without exudates with cones of light bilaterally. Trachea is midline. NECK: There is no JVD. HEART: S1, S2, irregularly irregular rhythm. No S3, S4, gallops, or rubs. There is a 2/6 systolic murmur increased at the base. LUNGS: Clear to auscultation bilaterally. ABDOMEN: Soft, nontender, nondistended without hepatosplenomegaly or masses. Bowel sounds are active. EXTREMITIES: There is no peripheral edema. NEUROLOGIC: The patient does intermittently stare off into space. Per the family , this is new for this provider. LAB/IMAGING: Laboratories: White blood cell count 8.4, hemoglobin 15.5, hematocrit 46.1, platelets 194,000. Sodium 139, potassium 3.9, chloride 105, bicarb 26, BUN 17, creatinine 0.9, glucose 105, calcium 9.1, total protein is 7.7. Albumin 4.0, total bilirubin 0.4, alk phos 55, AST 18, ALT 15. CPK 107. Troponin 0.06. D-dimer is less than 0.27. Other studies: EKG shows atrial fibrillation, 82 beats per minute with a QTc of 427. CT scan of the head is negative, except for sinus disease and minor white matter chronic ischemic changes. Chest x-ray: Shows mild cardiomegaly. IMPRESSION: 1. This is a 66-year-old fairly healthy male recently restarted on morphine ER at bedtime, presenting to the emergency department with sudden onset of dizziness and recurrent syncope with movement with new diagnosis atrial fibrillation, rate controlled, on no medications, and chest pain. PLAN: 1. Fluids, electrolytes, nutrition: The patient admits to not drinking a whole lot of fluids. His laboratories are not consistent with dehydration; however, he has received no IV fluids since admission. We will do a 1 L bolus of IV fluids and reevaluate. 2. Cardiac: New onset atrial fibrillation with chest pain. Troponins are currently normal. We will get echocardiogram in the morning. We will consult Cardiology. Orthostatic blood pressures were lying 146/99 with a pulse of 73, sitting 154/103 with a pulse of 98. TSH is pending at this time. 3. Neurologic: The patient is having intermittent episodes of staring off into space. Considering his cardiac symptoms, this would make most sense to be related to a cardiac etiology; however, on presentation, they are more consistent with absence seizures. He denies any headache, fevers, chills. CT scan of the head is normal. Blood pressure, pulse, and O2 saturation are normal. As patient continues to have intermittent events of staring off into space, would strongly suggest considering an MRI in the morning. 4. Prophylaxis: The patient has sequential compression devices ordered and is eating. 5. Code status: FULL CODE.
[2016-09-23 02:47] VITALS: BP 122/77
--- NOTE | 2016-09-23 06:00 | NUR ---
PT DID NOT SLEEP MUCH DURING THE NIGHT, WAS ALWAYS AWAKE WHEN ROUNDED ON. PT COMPLAINED THAT BED WAS VERY UNCOMFORTABLE, ESPECIALLY FOR HIS CHRONIC COCCYX AND LOWER BACK PAIN. WAFFLE MATTRESS PLACED ON BED, BUT NOT MUCH IMPROVEMENT PER PT. MEDICATED FOR CHRONIC PAIN WITH PERCOCET. PT CONTINUED HAVING INTERMITTENT CHEST PAIN DESCRIBED PRESSURE DURING THE SHIFT. MEDICATED WITH MORPHINE, SLIGHT IMPROVEMENT. USED URINAL AT BEDSIDE. PT ANXIOUS TO "FIGURE OUT WHAT IS GOING ON". AT BEDSIDE.
[2016-09-23 07:06] VITALS: BP 130/83
[2016-09-23 07:36] VITALS: BP 139/92
[2016-09-23 10:44] VITALS: BP 136/88
--- NOTE | 2016-09-23 10:52 | Progress Note ---
Subjective General patient has intermittent episdoes on staring into space, No chest pian, palipations, vertigo, dizziness or lightheadedness. No weakness, numbness, blurring of visionor slurred speech afebrile Physical Exam Vital Signs / I&Os Vital Signs Date Time Temp Pulse Resp B/P Pulse O2 O2 Flow FiO2 Ox Delivery Rate 09/23 0736 62 18 139/92 96 Room Air 09/23 0706 97.7 60 18 130/83 96 Room Air 09/23 0247 98.4 69 16 122/77 97 Room Air 09/22 2233 97.9 74 18 142/76 95 Room Air 09/22 2230 Room Air 09/22 2040 97.9 78 18 154/91 96 Room Air I&O 09/23 0000 09/22 1600 09/22 0800 Intake Total 0 Output Total 200 Balance -200 General Appearance Alert, Oriented X3, Cooperative, had 3-4 second episode of blan stare while I was talking to him HEENT Normal exam, PERRLA, dry oral mucosa Lungs Clear to auscultation Cardiovascular irregular rythm, regular rate, s1 and s2 normal Abdomen Soft, No tenderness, No guarding, No rebound Extremities No cyanosis, No edema, Normal pulses, Juan Francisco's sign negative Neurological Reflexes 2+ and equal, Cranial nerves intact, No lateralizing signs , no babinski or clonus Psych/Mental Status Mental status normal LAB Results Laboratory Tests 09/23 09/22 09/22 09/22 0330 1954 1954 1932 Chemistry Creatine Kinase (24 - 260 U/L) 92 Troponin (0.00 - 1.5 ng/mL) <0.05 <0.05 Cancelled TSH 3rd Generation (0.30 - 3.74 uIU/mL) 0.468 09/22 1645 Chemistry Plasma Sodium (136 - 145 mmol/L) 139 Plasma Potassium (3.5 - 5.1 mmol/L) 3.9 Plasma Chloride (98 - 107 mmol/L) 103 CO2 (Enzymatic) (21 - 32 mmol/L) 26 BUN (7 - 18 mg/dL) 17 Creatinine (0.6 - 1.3 mg/dL) 0.9 Est GFR ( Amer) (mL/min) >60 Est GFR (Non-Af Amer) (mL/min) >60 Glucose (70 - 110 mg/dL) 105 Plasma Calcium (8.5 - 10.1 mg/dL) 9.1 Total Bilirubin (0.0 - 1.0 mg/dL) 0.4 AST (15 - 37 U/L) 18 ALT (12 - 78 U/L) 15 Alkaline Phosphatase (46 - 116 U/L) 55 Creatine Kinase (24 - 260 U/L) 107 Troponin (0.00 - 1.5 ng/mL) 0.06 Total Protein (6.4 - 8.2 g/dL) 7.7 Albumin (3.3 - 5.0 g/dL) 4.0 Coagulation D-Dimer, Quantitative (0.27 - 0.52 ug/mLFEU) < 0.27 Hematology WBC (4.5 - 11.5 K/uL) 8.4 RBC (4.50 - 5.90 M/uL) 5.19 Hgb (13.5 - 17.5 gm/dL) 15.5 Hct (41.0 - 53.0 %) 46.1 MCV (80 - 100 fL) 89 MCH (26 - 34 pg) 30 RDW (11.6 - 14.8 %) 13.5 Neut % (Auto) (50 - 75 %) 66.1 Lymph % (Auto) (25 - 40 %) 24.8 Lyman % (Auto) (3 - 14 %) 5.9 Eos % (Auto) (0 - 4 %) 1.8 Baso % (Auto) (0 - 2 %) 1.4 Plt Count, EDTA (150 - 400 K/uL) 194 PUBS MCHC (31 - 37 g/dL) 34 Assessment and Plan Problem List 1. Atrial fibrillation Plan Echo, carotid doppler and MRI of brain recheck cardiac enzymes tsh is normal patien's chads score is 1. will start aspirin [address] howard's (Cardiology)consult patient's episode of staring in to space may be drug induced, possibly a form of serotonin syndrome. would d/c trazodone, cylobanazeprine, and duloxetine patient and family asking to be transferred to [place]. Case iscussed with dr. stacy who has aggred to accept patient. I explained to family that they need to check withtheir insurance as this may be classified as a lateral transfer of care by his insurance. He may need neurolgic evaluation or eeg which are not avaialbe here, and this could possbily be a reason for a higher level of care. 2. Chronic pain
--- NOTE | 2016-09-23 13:42 | DIAGNOSTIC IMAGING REPORT ---
PROCEDURE: MR BRAIN W/WO CONTRAST INDICATION: AMS, dizziness TECHNIQUE: Multiplanar multisequence MRI imaging of the brain without contrast. Post administration of 17 ml ProHance gadolinium based IV contrast, three plane T1 fat sat sequences were obtained. COMPARISON: None. FINDINGS: The midline structures are normally formed. The ventricular system is normal in size. Basal cisterns are patent. Flow voids in the major intracranial vessels are normal. No vascular malformations seen post contrast. There is a minimal increased signal in the periventricular white matter. No restricted diffusion to suggest acute ischemia. No evidence of acute or chronic intraparenchymal or extra-axial hemorrhage. No mass, mass effect, or midline shift. No suspicious enhancement. Normal signal in the visible bones. The sinuses are normally aerated. Visible extracranial soft tissues including the orbits are normal. IMPRESSION: 1 Minimal periventricular small-vessel ischemic disease 2. Otherwise normal MRI of the brain.
[2016-09-23 14:45] VITALS: BP 139/103
[2016-09-23 15:05] VITALS: BP 144/96
--- NOTE | 2016-09-23 15:39 | DIAGNOSTIC IMAGING REPORT ---
PROCEDURE: US BILATERAL CAROTID DOPPLER INDICATION: Recent syncope. TECHNIQUE: Color Doppler duplex imaging of the carotid and vertebral vessels. COMPARISON: None. FINDINGS: Right common carotid artery peak systolic velocity 55 cm/second. Right internal carotid artery peak systolic velocity 68 cm/second. Right external carotid artery peak systolic velocity 92 cm/second. Right teitsrlu-xl-wdyhok carotid artery ratio 1.2 Right vertebral artery peak systolic velocity 28 cm/second antegrade. Left common carotid artery peak systolic velocity 60 cm/second. Left internal carotid artery peak systolic velocity 67 cm/second. Left external carotid artery peak systolic velocity 88 cm/second. Left rwhjlfrw-yn-wdnczp carotid artery ratio 1.1 Left vertebral artery peak systolic velocity 44 cm/second antegrade. IMPRESSION: 1. Mild generalized intimal thickening with mild atheromatous plaque at the carotid bifurcations. 2. Mild bilateral 5-15% internal carotid artery stenoses. 3. No evidence of significant stenosis. Velocity criteria are extrapolated from diameter data as defined by the Society of Radiologists in Ultrasound Consensus Conference, Radiology 2003; 229; 340-346.
--- NOTE | 2016-09-23 15:39 | DIAGNOSTIC IMAGING REPORT ---
PROCEDURE: US BILATERAL CAROTID DOPPLER INDICATION: Recent syncope. TECHNIQUE: Color Doppler duplex imaging of the carotid and vertebral vessels. COMPARISON: None. FINDINGS: Right common carotid artery peak systolic velocity 55 cm/second. Right internal carotid artery peak systolic velocity 68 cm/second. Right external carotid artery peak systolic velocity 92 cm/second. Right uownnidj-mq-mwdskz carotid artery ratio 1.2 Right vertebral artery peak systolic velocity 28 cm/second antegrade. Left common carotid artery peak systolic velocity 60 cm/second. Left internal carotid artery peak systolic velocity 67 cm/second. Left external carotid artery peak systolic velocity 88 cm/second. Left nvhrbcnd-qv-ifjook carotid artery ratio 1.1 Left vertebral artery peak systolic velocity 44 cm/second antegrade. IMPRESSION: 1. Mild generalized intimal thickening with mild atheromatous plaque at the carotid bifurcations. 2. Mild bilateral 5-15% internal carotid artery stenoses. 3. No evidence of significant stenosis. Velocity criteria are extrapolated from diameter data as defined by the Society of Radiologists in Ultrasound Consensus Conference, Radiology 2003; 229; 340-346.
--- NOTE | 2016-09-23 17:03 | NUR ---
TRANSFERED TO [facility]. A/OX3, BS CTA, REPORT CALLED AND TAKEN BY AMBULANCE. HAS HAD "BLANK" MOMENTS DUIRNG THE DAY, THEY LAST 2-5 SECONDS AT MOST AND THEN HE "WAKES UP". TELE SHOWS A-FIB RATE 75-85 RARELY GOING TO 110 OR DOWN TO 60 BUT ONLY FOR 1-2 SECONDS THEN BACK TO BASELINE. HIS FAMILY HAS BEEN HERE MOST OF THE DAY. HAD AN MRI OF HIS HEAD AND A CARDIAC ECHOCARDIGRAM AND TOLERATED THOSE WITHOUT PROBLEM.
--- NOTE | 2016-09-23 20:28 | DISCHARGE SUMMARY ---
ADMIT DATE: 09/22/2016 DISCHARGE DATE: 09/23/2016 ADMITTING DIAGNOSES: 1. Atrial fibrillation 2. Syncope 3. Chronic pain DISCHARGE DIAGNOSES: 1. Same as inital diagnosis BRIEF HISTORY: The patient is a 66-year-old male with the history of chronic pain, who presented with dizziness, which started 24 hours prior to admission. He apparently was working hard and not drinking a lot of water and he passed out. He, however, continued to have persistent symptoms prompting him to go to the emergency department. The patient was found to be in atrial fibrillation with a normal ventricular rate. A CT scan of the head was negative. Chest x-ray showed mild cardiomegaly. HOSPITAL COURSE: The patient was admitted for further observation. He remained in atrial fibrillation during the rest of his hospital stay. There were no episodes of rapid ventricular rate. Troponins were all within normal limits. He was started on aspirin for stroke prophylaxis. An MRI was done, which did not show any evidence of acute stroke. Carotid Doppler study did not show any evidence of significant stenosis. The patient continued to have some episodes of dizziness and he would have intermittent episodes wherein he would just stare into space and blank out. This happened several times during the day when patient was being examined. Etiology of this is unclear, but probably secondary to medications. He is on cyclobenzaprine, trazodone and duloxetine, as well as narcotic analgesics. Another possibility would be some sort of absence seizure and I informed the family that patient's medication should probably be discontinued first to see if there would be any improvement of symptoms. DISCHARGE INSTRUCTIONS/MEDICATIONS: Family requested that he be transferred to [place]. I spoke with the [place] physicians and they agreed to accept the patient; however, I did inform the patient's family that this may be a lateral transfer for care and the patient is being transferred based on patient's family 's request. They were aware of the consequences that this decision could have on their insurance payment as some insurance companies may not honor and pay for transfers without requiring a higher level of care. The patient's family and the patient himself agreed with the transfer. He was transferred in hemodynamically stable condition.
--- NOTE | 2016-09-23 20:55 | DIAGNOSTIC IMAGING REPORT ---
REFERRING PHYSICIAN/PROVIDER: Dr. Minor Qureshi CONSULTING ONLINE MERCHANDISING MANAGER: Trenton Kelley MD PROCEDURE: 2D echo, M-mode and complete color and flow Doppler interrogation TECHNICAL QUALITY: Technically difficult INDICATION: syncope INTERPRETATIONS: CHAMBERS: LEFT ATRIUM: Normal left atrial size. LEFT VENTRICLE: Normal left ventricular size, wall thickness, and systolic function. EF 58%. No wall motion abnormalities seen. Indeterminate diastolic function due to underlying arrhythmia. RIGHT ATRIUM: Normal right atrial size. RIGHT VENTRICLE: Normal right ventricular size and systolic function. VALVES: All valves nonrheumatic unless otherwise indicated. AORTIC VALVE: Individual aortic valve leaflets not clearly seen. Aortic sclerosis without stenosis. No aortic regurgitation. MITRAL VALVE: Normal appearance. No mitral regurgitation. No mitral stenosis. TRICUSPID VALVE: Trace tricuspid regurgitation. Unable to estimate pulmonary artery systolic pressure due to inadequate tricuspid regurgitation. PULMONIC VALVE: No pulmonic regurgitation. MISCELLANEOUS: No pericardial effusion. HEMODYNAMICS: Normal diameter IVC with >50% inspiratory collapse. CVP is 3 mmHg. IMPRESSION: 1. Normal left ventricular size and systolic function, EF 58%. No wall motion abnormalities. 2. Indeterminate diastolic function. 3. No hemodynamically significant valvular abnormalities. 4. Normal right ventricular size and systolic function. 5. Unable to estimate pulmonary artery systolic pressure due to inadequate tricuspid regurgitation jet. 6. No pericardial effusion.
== END 2016-09-23 16:55 | disposition short-term general hospital (02) ==
LOC: ED SRH 15:32 → ACUTE2 SRH 19:18 → TRANS SRH 19:18 → ACUTE2 SRH 20:34
PROVIDERS: ADMIT Family Medicine
PROC: 05HY33Z Insertion of Infusion Device into Upper Vein, Percutaneous Approach (ICD-10-PCS; principal; 2016-09-22)
DX: I48.91 Unspecified atrial fibrillation (principal); E86.0 Dehydration; R55 Syncope and collapse; R41.82 Altered mental status, unspecified; R42 Dizziness and giddiness; G89.29 Other chronic pain
CPT/HCPCS: 29230; 29249; 29264; 85241; 90004; 90074; 90100; 90616; 91556; 92610; 92760; 92761; 92762; 92763; 92764; 92765; 92766; 92767; 93140; 95059